=== PATIENT | male | born 2000 | race Caucasian/White ===

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

== ENCOUNTER 2019-12-20 11:29 | Emergency (ER) | payer BC ==
[~2019-12-20] VITALS: Ht 172.7 cm; Wt 83.2 kg
--- NOTE | 2019-12-20 11:47 | NUR ---
BIBS W/ MOTHER TO ER BED 7. AAOX4. NOT IN RESP DISTRESS. AMBUALTORY ON STEADY GAIT. CAME IN FOR UNEXPECTED WEIGHT LOSS OF 20LBS IN THE PAST 2 MONTHS. PER PT, HE HAS BEEN HAVING POOR APPETITE AND UNABLE TO EAT. DENIES ANY ABDOMINAL PAIN. DENIES N/V/D. WAS AT BEDSIDE FOR EVAL. ORDERS RECEIVED, NOTED AND CARRIED OUT. URINE SUBMITTED BY PT. VIDEO EFFECTS EDITOR AT [facility] FOR BLOOD DRAW.
[2019-12-20 11:54] LABS: BASOPHILS # (AUTO) 0.1 /CMM (0.0-0.2); EOSINOPHILS % (AUTO) 1.6 % (0.0-6.0); HEMATOCRIT 43 % (39-51); HEMOGLOBIN 14.6 g/dL (13.5-17.5); LYMPHOCYTES # (AUTO) 2.3 /CMM (0.8-4.8); LYMPHOCYTES % (AUTO) 29.5 % (20.0-44.0); MEAN CORPUSCULAR HGB CONC 34 g/dl (31.0-36.0); MEAN CORPUSCULAR VOLUME 85 fL (80-96); MONOCYTES # (AUTO) 0.4 /CMM (0.1-1.30); MONOCYTES % (AUTO) 5.5 % (2.0-12.0); NEUTROPHILS # (AUTO) 4.8 /CMM (1.8-8.9); NEUTROPHILS % (AUTO) 62.4 % (43.0-81.0); PLATELET COUNT (AUTO) 214 /CMM (150-450); RED BLOOD CELL COUNT(AUTO) 5.04 MIL/uL (4.5-6.0); WHITE BLOOD COUNT (AUTO) 7.6 K/uL (4.3-11.0)
--- NOTE | 2019-12-20 11:56 | NUR ---
XRAY AT BEDSIDE.
[2019-12-20 12:01] LABS: CALCIUM, SERUM 9.1 mg/dL (8.5-10.1); POTASSIUM 3.9 mmol/L (3.5-5.1)
--- NOTE | 2019-12-20 12:01 | NUR ---
Patient discharged to home in stable condition. Written and verbal after care instructions given. Patient verbalizes understanding of instruction. Pt ambulatory with a steady gait
[2019-12-20 12:03] LABS: APPEARANCE,URINE Clear (CLEAR); BILIRUBIN,URINE Negative (NEGATIVE); BLOOD, URINE Trace-intact Ery/uL (NEGATIVE); COLOR,URINE Yellow (YELLOW); KETONES,URINE Negative (NEGATIVE); LEUKOCYTE ESTERASE ,URINE Negative (NEGATIVE); NITRITE, URINE Negative (NEGATIVE); PROTEIN,URINE Negative (NEGATIVE); UGLUCOSE Negative (NEGATIVE); UROBILINOGEN,URINE 0.2 EU/dL (0.2)
[2019-12-20 12:05] VITALS: BP 127/62
[2019-12-20 12:07] LABS: ALBUMIN 4.5 g/dL (3.4-5.0); BILIRUBIN,DIRECT 0.1 mg/dL (0.0-0.2); BILIRUBIN,TOTAL 0.5 mg/dL (0.2-1.0); TOTAL PROTEIN, SERUM 7.8 g/dL (6.4-8.2)
[2019-12-20 12:07] LABS: BACTERIA,URINE Rare /HPF (None Seen); MUCUS,URINE Rare /LPF (None Seen); SQUAMOUS EPITHELIAL CELL,UR Rare /HPF (None Seen); WBC,URINE 0-2 /HPF (0-3)
== END 2019-12-20 12:06 | disposition home or self-care (01) ==
LOC: ER 11:30
DX: R63.4 Abnormal weight loss (principal); Z68.27 Body mass index [BMI] 27.0-27.9, adult; Z91.018 Allergy to other foods
CPT/HCPCS: 36415; 71045-TC; 80048-TC; 80076-TC; 81000-TC; 83690-TC; 85025-TC

== ENCOUNTER 2021-04-04 13:50 | Outpatient (CLI) | payer BC ==
[2021-04-04 14:35] LABS: BASOPHILS % (AUTO) 0.3 % (0.0-2.0); EOSINOPHILS % (AUTO) 0.7 % (0.0-6.0); HEMATOCRIT 41 % (39-51); LYMPHOCYTES % (AUTO) 30.2 % (20.0-44.0); MEAN CORPUSCULAR HGB CONC 34 g/dl (31.0-36.0); MEAN CORPUSCULAR VOLUME 84 fL (80-96); MONOCYTES # (AUTO) 0.4 K/uL (0.1-1.30); MONOCYTES % (AUTO) 5.6 % (2.0-12.0); NEUTROPHILS # (AUTO) 4.2 K/uL (1.8-8.9); NEUTROPHILS % (AUTO) 63.2 % (43.0-81.0); PLATELET COUNT (AUTO) 194 K/uL (150-450); RED BLOOD CELL COUNT(AUTO) 4.83 MIL/uL (4.5-6.0); WHITE BLOOD COUNT (AUTO) 6.7 K/uL (4.3-11.0)
[2021-04-04 15:13] LABS: T4 (THYROXINE) 7.2 ug/dL (4.7-13.3); THYROID STIMULATING HORMONE 0.617 uIU/mL (0.358-3.74)
[2021-04-04 15:31] LABS: ALBUMIN 4.6 g/dL (3.4-5.0); BILIRUBIN,TOTAL 0.9 mg/dL (0.2-1.0); CALCIUM, SERUM 9.1 mg/dL (8.5-10.1); POTASSIUM 3.5 mmol/L (3.5-5.1); TOTAL PROTEIN, SERUM 7.9 g/dL (6.4-8.2)
[2021-04-04 17:05] LABS: BILIRUBIN,URINE NEGATIVE (NEGATIVE); COLOR,URINE DARK YELLOW (YELLOW); LEUKOCYTE ESTERASE ,URINE NEGATIVE (NEGATIVE); NITRITE, URINE NEGATIVE (NEGATIVE); PROTEIN,URINE NEGATIVE (NEGATIVE); UGLUCOSE NEGATIVE (NEGATIVE); UROBILINOGEN,URINE 0.2 EU/dL (0.2)
== END 2021-04-04 23:59 | disposition home or self-care (01) ==
LOC: LAB 13:50
PROVIDERS: ATTEND Family Medicine
DX: Z00.01 Encounter for general adult medical examination with abnormal findings (principal)
CPT/HCPCS: 36415; 80053-TC; 80061-TC; 82306; 82607-TC; 84436-TC; 84443-TC; 85025-TC

== ENCOUNTER 2021-04-12 15:18 | Outpatient (CLI) | payer BC | END 2021-04-12 23:59 | disposition home or self-care (01) | LOC: RAD 15:18 | PROVIDERS: ATTEND Family Medicine | DX: M54.2 Cervicalgia (principal) | CPT/HCPCS: 72040-TC ==